=== PATIENT | female | born 1995 | race Caucasian/White ===

== ENCOUNTER 2020-08-06 12:30 | Emergency (ER) | payer BC, MEDICAID ==
[2020-08-06] MEDS ORDERED: Lidocaine 1% PF 5 ML VIAL ONE (13:18)
[2020-08-06] MEDS ORDERED: Boostrix 0.5 ML (Tdap) VIAL ONE (13:53)
[2020-08-06] MEDS ORDERED: HYDROcodone/Acetaminophen 5/325 mg Tablet ONE (14:05)
== END 2020-08-06 14:07 | disposition home or self-care (01) ==
LOC: BURERS 12:30
DX: T16.2XXA Foreign body in left ear, initial encounter (principal)
CPT/HCPCS: 10120; 90471; 90715

== ENCOUNTER 2021-04-20 10:33 | Emergency (ER) | payer BC, MEDICAID ==
[2021-04-20] MEDS ORDERED: Morphine 2 MG/ML VIAL ONE (11:02)
[2021-04-20] MEDS ORDERED: Morphine 4 MG/ML VIAL ONE ×2 (11:02→12:50)
[2021-04-20] MEDS ORDERED: Ondansetron PF 4 MG/2 ML Vial ONE ×2 (11:02→12:54)
[2021-04-20 11:09] LABS: #Basophils 0.1 thou/uL (0.0-0.2); #Eosinphils 0.3 thou/uL (0.0-0.7); #Monocytes 0.5 thou/uL (0.11-0.59); #Neutrophils 7.5 thou/uL (1.40-6.50); %Basophils 0.6 % (0.0-1.0); %Eosinophils 2.6 % (0.0-10.0); %Lymphocytes 19.2 % (21.0-51.0); %Monocytes 4.7 % (0.0-10.0); Hemoglobin 13.9 g/dL (12.0-16.0); Mean Corpuscular HGB CONC 32.5 g/dL (32.0-36.0); Mean Corpuscular Hemoglobin 25.8 pg (27.0-31.0); Mean Corpuscular Volume 79.4 fL (78.0-98.0); Mean Platelet Volume 6.6 fL (7.4-10.4); Platelet Count 374 thou/uL (130-400); RBC Distribution Width 13.9 % (11.5-14.5); Red Blood Cell (RBC) Count 5.37 mill/uL (4.20-5.40); White Blood Cell (WBC) Count 10.3 thou/uL (4.8-10.8)
[2021-04-20 11:21] LABS: ALT (SGPT) 343 U/L (8-55); AST (SGOT) 178 U/L (5-34); Alkaline Phosphatase 329 U/L (40-110); Anion Gap 13 mmol/L (10-20); BUN (Urea Nitrogen) 8 mg/dL (7.0-18.7); Bilirubin, Total 3.7 mg/dL (0.2-1.2); Calc. Creatinine Clearance 0 mL/min (70-130); Calcium 9.4 mg/dL (7.8-10.44); Carbon Dioxide 21 mmol/L (22-29); Chloride 107 mmol/L (98-107); Glucose 159 mg/dL (70-105); Potassium 3.7 mmol/L (3.5-5.1); Sodium 137 mmol/L (136-145)
[2021-04-20 11:34] LABS: BHCG - Serum Negative (NEGATIVE); Pregs Control Background? CLEAR/WHITE (CLR/WHITE); Pregs Control Bar Appear? YES (CONTROL BAR)
[2021-04-20 12:03] LABS: Lipase Greater than 16000 U/L (8-78)
[2021-04-20] MEDS ORDERED: Cefepime 2 GM VIAL ONE (12:26)
[2021-04-20] MEDS ORDERED: Sodium Chloride 0.9% 100 ML ONE (12:26)
[2021-04-20 15:51] LABS: SARS-CoV-2 NAA Rapid Test Not Detected (NotDetected)
== END 2021-04-20 17:16 | disposition short-term general hospital (02) ==
LOC: BURERS 10:33
DX: K85.90 Acute pancreatitis without necrosis or infection, unspecified (principal); Z20.822 Contact with and (suspected) exposure to COVID-19
CPT/HCPCS: 74177; 80053; 83690; 84703; 85025; 96365; 96375; 96376; J0692; J2270; J2405; J3490; U0002